=== PATIENT | male | born 1955 | race Caucasian/White ===

== ENCOUNTER 2019-03-30 11:46 | Outpatient (CLI) | payer OTHER, SELFPAY ==
--- NOTE | 2019-03-30 12:36 | ECG_ITS ---
Measurements Intervals [place] Rate: 49 P: 61 WI: 162 QRS: -27 QRSD: 86 T: 20 QT: 427 QTc: 387 Interpretive Statements SINUS BRADYCARDIA VOLTAGE CRITERIA FOR LVH DELAYED PRECORDIAL R/S TRANSITION BASELINE ARTIFACT- I, III, AVL ABNORMAL ECG Electronically Signed On 03-30-2019 14:00:06 SOCIAL SECURITY SPECIALIST by Gilbert Amador D.O.
[2019-03-30 12:55] LABS: Basophils Absolute Auto 0.1 K/mm3 (0.0-0.1); Basophils Percent Auto 0.7 % (0.2-1.2); Eosinophils Absolute Auto 0.2 K/mm3 (0-0.3); Eosinophils Percent Auto 2.1 % (0-4.4); Hematocrit 46.7 % (42.0-52.0); Hemoglobin 15.3 g/dL (14.0-18.0); Immature Granulocyte Absolute 0.02 K/mm3 (0.00-0.031); Immature Granulocyte Percent A 0.2 % (0-0.5); Lymphocytes Absolute Auto 2.59 K/mm3 (0.9-3.2); Lymphocytes Percent Auto 30.4 % (18.3-44.2); Mean Corpuscular HGB Conc 32.8 g/dl (32-36); Mean Corpuscular Hemoglobin 30.1 pg (26-34); Mean Corpuscular Volume 91.9 fl (80-100); Mean Platelet Volume 9.4 fl (7.4-10.4); Monocytes Absolute Auto 0.6 K/mm3 (0.1-0.6); Monocytes Percent Auto 6.4 % (2.6-8.5); Neutrophils Absolute Auto 5.1 K/mm3 (1.3-6.7); Neutrophils Percent Auto 60.2 % (45.5-73.1); Platelet Count Result 202 k/mm3 (150-375); Red Blood Count 5.08 M/mm3 (4.6-6.20); Red Cell Distribution Width 11.9 % (11.5-14.5); White Blood Count 8.5 K/mm3 (4.5-10.0)
[2019-03-30 12:58] LABS: Add Urine Microscopic? YES; Appearance Urine Clear (Clear); Bilirubin Urine Negative (Negative); Blood Urine 1+ (Negative); Color Urine Yellow (Yellow); Glucose Urine UA Negative (Negative); Ketones Urine Negative (Negative); Leukocyte Esterase Ur Negative LEU/UL (Negative); Mucus Urine Rare /lpf; Nitrate Urine Negative (Negative); Protein Urine Negative (Negative); RBC Urine 0-2 /hpf (0-2); Specific Grav Ur 1.013 (1.001-1.035); Urobilinogen Urine Negative mg/dL (<2.0); WBC Urine 0-3 /hpf
[2019-03-30 13:03] LABS: Prothrombin Time 12.6 Seconds (11.1-14.7)
[2019-03-30 13:04] LABS: Partial Thromboplastin Time 26.4 SECONDS (22.3-36.8)
[2019-03-30 13:07] LABS: Alanine Aminotransferase 22 U/L (4-50); Albumin Level 4.3 g/dL (3.5-5.1); Alkaline Phosphatase 61 U/L (38-126); Aspartate Amino Transferase 25 U/L (17-59); Bilirubin,Total 0.7 mg/dL (0.2-1.3); Blood Urea Nitrogen 19 mg/dL (9-20); Calcium 8.8 mg/dL (8.4-10.2); Carbon Dioxide 28 mmol/L (22-30); Chloride 99 mmol/L (98-107); Estimated Glomerular Filt Rate > 60; Glucose 92 mg/dL (75-110); Potassium 4.4 mmol/L (3.4-5.0); Sodium 139 mmol/L (137-145)
== END 2019-03-30 11:47 | disposition home or self-care (01) ==
LOC: ANHSURGERY 11:50
PROVIDERS: Visit Provider Urology
DX: Z01.818 Encounter for other preprocedural examination (principal); C61 Malignant neoplasm of prostate; R94.31 Abnormal electrocardiogram [ECG] [EKG]
CPT/HCPCS: 36415; 80053; 81001; 85025; 85610; 85730; 86850; 86900; 86901; 93005

== ENCOUNTER 2019-04-09 01:30 | Day surgery (SDC) | payer OTHER, SELFPAY ==
[2019-03-30 12:38] VITALS: BP 155/85; PULSE 54; RESP 18; TEMP 36.9; O2SAT 100; BMI 29.3
--- NOTE | 2019-04-06 07:26 | PM.IMHP ---
H&P: HPI History of Present Illness Chief complaint: Prostate CA Narrative: Skyler Ybarra is a 63 year old male recently referred with PSA 9.8. Prostate biopsy showed 10 or 12 cores with Khushi 3+4=7 adenocarcinoma of the prostate with multiple cores showing intraductal ca. Staging CT-abd/pelvis, bone scn and CXR showed no evidence of metastatic disease. His prostate size on ultrasound was 46.0cc. Review of Systems Constitutional: Constitutional: Denies chills, Denies fatigue, Denies fever(s) and Denies headache(s) Eyes: Eyes: Denies blurry vision ENT: Denies vertigo, Denies dizziness, Denies headache(s) and Denies sore throat Cardiovascular: Cardiovascular: Denies chest pain, Denies syncope, Denies lightheadedness, Denies palpitations, Denies dyspnea and Denies dyspnea on exertion Respiratory: Respiratory: Denies hemoptysis, Denies dyspnea and Denies dyspnea on exertion Gastrointestinal: Gastrointestinal: Denies melena, Denies bloating, Denies hematochezia, Denies change in bowel habits, Denies change in stool character, Denies constipation, Denies diarrhea and Denies vomiting Genitourinary: Genitourinary: Denies hematuria, Denies dysuria, Denies testicular pain, Denies urinary frequency, Denies urinary hesitancy and Denies urinary urgency Integumentary/Breasts: Skin/Breast: Denies pruritus, Denies lesions and Denies rash Neurologic: Denies confusion, Denies vertigo, Denies dizziness, Denies syncope and Denies headache(s) Psychiatric: Psychiatric: Denies anxiety, Denies change in appetite and Denies confusion Endocrine: Endocrine: Denies fatigue and Denies palpitations [facility] Social History Social History Alcohol intake: current Meds Home Medications and Allergies Home Medications Medication Instructions Recorded Confirmed Type abatacept [Orencia ClickJect] 125 mg SUBCUT WEEKLY 03/30/19 03/30/19 History ascorbic acid (vitamin C) 500 mg PO DAILY 03/30/19 03/30/19 History calcium carbonate [Tums] 200 mg PO PRN PRN 03/30/19 03/30/19 History folic acid 1 mg PO DAILY 03/30/19 03/30/19 History meloxicam 7.5 mg PO PRN PRN 03/30/19 03/30/19 History methotrexate sodium 7.5 mg PO WEEKLY 03/30/19 03/30/19 History prednisone 5 mg PO PRN PRN 03/30/19 03/30/19 History vitamin B complex [B-Complex] 1 tablet PO DAILY 03/30/19 03/30/19 History Allergies Allergy/AdvReac Type Severity Reaction Status Date / Time No Known Allergies Allergy Unverified 03/30/19 11:58 Exam Const: General: healthy appearing, comfortable, no acute distress and well developed; No confusion Nutritional Appearance: well nourished Orientation/consciousness: patient oriented x3 and No confusion HENMT: Head: normocephalic and atraumatic Ears: external ears normal Face and sinus: normal facial exam Mouth: Yes lip normal Teeth and gingiva: dentition normal Eyes: General: appearance normal, both eyes and all related structures Alignment and Position: alignment normal Eyelids: eyelids normal Cornea: corneas normal Pupils: Equal, round and reactive pupils present EOM: EOMs intact bilaterally Neck: Neck: normal visual inspection, full ROM and no JVD Chest: Chest palpation & inspection: normal inspection of the chest Resp: Effort & Inspection: normal respiratory effort and no use of accessory muscles Auscultation: clear to auscultation bilaterally Cardio: Jugular venous distension: no JVD Rate: regular rate Rhythm: regular rhythm GI: Inspection: normal to inspection GI Palp: No abdominal tenderness, No Guarding due to palpation present (GI) and No Rebound tenderness present Auscultation: normal bowel sounds : General: Yes bladder normal to palpation and No CVA tenderness Back/Spine/Pelvis: Back: No CVA tenderness Skin: General skin exam: normal color and no rashes or lesions noted Neuro: General: patient oriented x3, no focal motor deficits and No confusion Cranial nerv
[2019-04-09] VITALS (10 sets, daily range): BP systolic 109–161; BP diastolic 53–87; PULSE 54–81; RESP 14–20; TEMP 36.1–36.9; O2SAT 95–100
--- NOTE | 2019-04-09 06:49 | WPDHPUPDATE1 ---
History and Physical Update Update Date/Time: 04/09/19 06:49 History and Physical has been reviewed, including an updated exam of the patient. There are NO changes in the patient's condition. Risks, benefits, and alternatives have been discussed and questions answered. Patient agrees to proceed with procedure.
--- NOTE | 2019-04-09 06:53 | WPDANESEPPF ---
Anes - Initial Pre Proc Eval Procedure: Operation Date: 04/09/19 07:30 Proposed Procedures p Robotic Assisted Laparoscopic Prostatectomy, Bilateral Pelvic Lymph Node Dissection - Brian Clark MD Date/Time: 04/09/19 06:53 Surgeon: Brian Clark MD Pre Op Diagnosis: Prostate CA Patient Data Age: 63 Gender: M Height: 5 ft 10 in Weight: 92.7 kg Last Vital Signs Temp 36.9 C 03/30/19 12:38 Pulse 54 L 03/30/19 12:38 Resp 18 03/30/19 12:38 BP 155/85 H 03/30/19 12:38 Pulse Ox 100 03/30/19 12:38 Allergies Allergy/AdvReac Type Severity Reaction Status Date / Time No Known Allergies Allergy Unverified 03/30/19 11:58 Home Medications Medication Instructions Recorded Confirmed Type abatacept [Orencia ClickJect] 125 mg SUBCUT WEEKLY 03/30/19 03/30/19 History ascorbic acid (vitamin C) 500 mg PO DAILY 03/30/19 04/09/19 History calcium carbonate [Tums] 200 mg PO PRN PRN 03/30/19 04/09/19 History folic acid 1 mg PO DAILY 03/30/19 04/09/19 History meloxicam 7.5 mg PO PRN PRN 03/30/19 04/09/19 History methotrexate sodium 7.5 mg PO WEEKLY 03/30/19 04/09/19 History prednisone 5 mg PO PRN PRN 03/30/19 04/09/19 History vitamin B complex [B-Complex] 1 tablet PO DAILY 03/30/19 04/09/19 History Patient hx anesthesia problems: none Family hx anesthesia problems: none [facility] Past Medical History Medical History Rheumatoid arthritis Social History Social History (Updated 04/09/19 @ 06:54 by Vitaliy Gross MD) Smoking status: Current every day smoker Tobacco type: e-cigarettes Alcohol intake: current Anes - Eval Final PreProcedure Day of Procedure 04/09/19 06:53 Patient weight: overweight Heart: regular rate and rhythm Lungs: decreased breath sounds Airway: Mallampati scale class II Neurological: alert and oriented Last oral intake: >/= 8 hours ASA classification: III Emergent: no Anesthetic plan: proceed Anesthesia type and monitoring: general ETT and standard monitoring Informed Consent: The patient's anesthetic plan and its attendant risks and benefits were discussed with the patient/family/POA. Questions were solicited and answers provided to the satisfaction of the patient/family/POA.
[2019-04-09] MEDS: LACTATED RINGERS 1,000 ML 30 ML IV CONT ×2 (06:58→10:57)
[2019-04-09] MEDS: ceFAZolin 2 GM/D5W 50 ML 2 GM/50 ML BAG IVPB (07:30)
--- NOTE | 2019-04-09 11:00 | PM.PROC ---
Procedure Note - Detailed Date of procedure: 04/09/19 Pre-op diagnosis: Prostate CA Post-op diagnosis: same Procedure performed: 1. Bilateral nerve-sparing, robotic-assisted radical prostatectomy. 2. Bilateral pelvic lymphadenectomy Description of procedure: The patient was brought to the operative suite, where he was prepped and draped in routine sterile fashion while in a dorsal lithotomy, deep Trendelenburg position. A supraumbilical 10 mm trocar was placed after insufflation of the abdomen with a Veress needle. Three robotic ports were then placed under direct vision. Two of these were placed in the right lower quadrant - 10 cm and 20 cm lateral to, and in line with, the umbilicus. A third robotic trocar was placed 10 cm to the left of the umbilicus, and 20 cm to the left of the umbilicus, a 12 mm standard laparoscopic trocar was placed to be used as an contact lens assistant port. Lastly, a 5 mm trocar was placed in the left upper quadrant midway between the umbilicus and the left robotic trocar. Attention was then turned to the prostatectomy. I opted for a posterior approach in this patient. An incision was made in the parietal peritoneum along the posterior bladder/posterior prostate about 2 cm above the reflection of the peritoneum over the anterior rectum. The seminal vesicles and vas deferens were immediately identified. Dissection is undertaken in a fashion so as to avoid electrocautery as much as possible, particularly near the tips of the seminal vesicles. Dissection was also carried out in the midline so as to avoid any encounters with the ureters. The vas deferens and the seminal vesicles were dissected in their entirety to the base of the prostate. The plane anterior to Denoviller's fascia, anterior to the rectum and posterior to the prostate was then developed. I then dropped the bladder by incising the anterior parietal peritoneum just lateral to the median umbilical ligaments bilaterally. The bladder was dropped from the anterior abdominal and pelvic wall. The endopelvic fascia was identified and incised bilaterally, allowing for dissection of the posterior-lateral aspect of the prostate. The puboprostatic ligaments were transected near their origin from the posterior pubic ramus. This posterior lateral dissection of the prostate is also undertaken in a fashion so as to avoid electrocautery as much as possible. The dorsal vein of the penis is then secured with an 0 -Vicryl ligature. Attention is then turned to the bladder neck. The anterior bladder neck is incised at the vesico-prostatic junction. The previously placed urethral catheter was drawn through the urethrotomy. A very small bladder neck was maintained throughout the remainder of this dissection. The posterior bladder neck was incised in a fashion so as to avoid any injury to the ureteral orifices. Again, the small aperture of the bladder neck was maintained. The previously dissected vas deferens and the seminal vesicles were brought through the posterior bladder neck incision. The lateral prostatic pedicles were then carefully dissected from the lateral aspect of the prostate bilaterally. The prostatic pedicles were secured with Weck clips and transected. The neurovascular bundles were carefully dissected from the posterior-lateral aspect of the prostate. The dorsal vein of the penis was incised with electrocautery. Using cold scissors, the urethra was incised. After withdrawing the previously placed urethral catheter, the posterior urethra was sharply incised, as was the rectalurethralis muscle. Attention was then turned to a bilateral pelvic lymphadenectomy. The limits of this dissection were similar bilaterally. Specifically, the limits were the bifurcation of the common iliac vein proximally, the inguinal ligament distally, the obturator nerve posteriorly and the anterior aspect to the external iliac vein laterally. This dissection was undertaken with care to avoid any injury to the
--- NOTE | 2019-04-09 11:45 | PC.NURSE ---
This patient, Skyler Ybarra, was admitted to 3 [facility] Surg Room 309-01. Patient/family oriented to hospital policies and general routines including ID bracelet, bed and alarms, visiting hours, pain management, procedures, bathroom and other care routines, personal items, smoking policy, room service/diet, and visiting hours. Valuables list has been completed. Information on how to activate the Rapid Response Team has been discussed. Patient/Family are encouraged to report perceived risks to care and to ask questions if they do not understand what they are told or what they should do.
--- NOTE | 2019-04-09 11:52 | SUR.PHASEI ---
1115 SPOKE WITH FRIEND FRANDY RE: ROOM NUMBER ON FLOOR. 1130 WAITING ROOM CALLED; NO FAMILY PRESENT.
[2019-04-09] MEDS: HYOSCYAMINE SULFATE 0.125 MG TABLET SUBLINGUAL (12:15)
[2019-04-09] MEDS: KETOROLAC 30 MG/ML VIAL (*BKC) IV PUSH (12:15)
[2019-04-09] MEDS: LACTATED RINGERS 1,000 ML 125 ML IV CONT ×2 (12:51→21:59)
[2019-04-09] MEDS: MORPHINE SULFATE 2 MG/ML INJ IV PUSH (17:01)
[2019-04-10 02:00] VITALS: BP 105/46; PULSE 60; RESP 16; TEMP 36.8; O2SAT 94
[2019-04-10 06:00] VITALS: BP 95/55; PULSE 56; RESP 16; TEMP 37; O2SAT 95
[2019-04-10] MEDS: LACTATED RINGERS 1,000 ML 125 ML IV CONT (06:11)
[2019-04-10 06:19] LABS: Hematocrit 38.8 % (42.0-52.0); Hemoglobin 13.2 g/dL (14.0-18.0)
[2019-04-10 06:36] LABS: Blood Urea Nitrogen 15 mg/dL (9-20); Calcium 8.2 mg/dL (8.4-10.2); Carbon Dioxide 29 mmol/L (22-30); Chloride 100 mmol/L (98-107); Estimated CRCL calculation 97 ml/min; Estimated Glomerular Filt Rate > 60; Glucose 114 mg/dL (75-110); Potassium 4.4 mmol/L (3.4-5.0); Sodium 135 mmol/L (137-145)
--- NOTE | 2019-04-10 07:31 | WPDUROPN2 ---
Progress Note: A&P Assessment and Plan (1) Prostate cancer: Code(s): C61 - Malignant neoplasm of prostate Status: Acute Assessment and Plan: Doing well POD #1 RALP. Increase diet/activity this morning. Posssibly home this afternoon. Subjective Subjective Date/Time Seen: 04/10/19 07:31 POD #1 RALP - comfortable, tolerating diet. Review of Systems Cardiovascular: Cardiovascular: Denies chest pain, Denies lightheadedness, Denies palpitations and Denies dyspnea Respiratory: Respiratory: Denies dyspnea Gastrointestinal: Gastrointestinal: Denies diarrhea, Denies nausea and Denies vomiting Genitourinary: Genitourinary: Denies hematuria and Denies dysuria Endocrine: Endocrine: Denies palpitations Exam Const: General: no acute distress Resp: Effort & Inspection: normal respiratory effort GI: Inspection: non-distended GI Palp: No abdominal tenderness and No Guarding due to palpation present (GI) Auscultation: normal bowel sounds Objective Data Vital Signs Vital Signs: Vital Signs - 24 hr 04/09/19 10:47 04/09/19 11:01 04/09/19 11:10 Temperature 97.1 F L Pulse Rate 78 77 67 Respiratory Rate 14 16 15 Blood Pressure 124/74 161/67 H 140/76 Pulse Oximetry 100 97 98 04/09/19 11:25 04/09/19 11:39 04/09/19 11:54 Temperature 97.4 F L 97 F L Pulse Rate 76 70 73 Respiratory Rate 15 16 16 Blood Pressure 144/69 H 151/71 H 161/87 H Pulse Oximetry 98 97 95 04/09/19 12:24 04/09/19 14:00 04/09/19 22:00 Temperature 97.2 F L 97.6 F 98.4 F Pulse Rate 81 78 71 Respiratory Rate 16 18 16 Blood Pressure 142/58 H 109/53 L Pulse Oximetry 99 96 95 04/10/19 02:00 Temperature 98.2 F Pulse Rate 60 Respiratory Rate 16 Blood Pressure 105/46 L Pulse Oximetry 94 Intake/Output Intake/Output: Intake & Output 04/07/19 04/08/19 04/09/19 04/10/19 23:59 23:59 23:59 23:59 Intake Total 3495 1100 Output Total 280 Balance 3215 1100 Meds/Results Medications: Active Medications Generic Name Dose Route Start Last Admin Trade Name Freq PRN Reason Stop Dose Admin Calcium Carbonate 200 mg 04/09/19 11:00 Tums PO PRN PRN Indigestion Hyoscyamine 0.125 mg 04/09/19 11:39 04/09/19 12:15 Levsin Tablet SUBLINGUAL 0.125 mg Q4H PRN Administration Bladder Spasm Lactated Ringer's 1,000 mls @ 125 mls/hr 04/09/19 11:39 04/10/19 06:11 Lr - Lactated Ringers Iv IV CONT 125 mls/hr .Q8H TEOFILO Administration Acetaminophen 1,000 mg in 100 mls @ 400 mls/hr 04/09/19 15:00 04/10/19 04:03 Ofirmev 1,000 Mg Ivpb IVPB 04/10/19 15:01 Infused Q6H TEOFILO Infusion Ketorolac Tromethamine 30 mg 04/09/19 11:39 04/09/19 12:15 Toradol Inj IV PUSH 04/10/19 11:40 30 mg Q6H PRN Administration Pain Rated 4-6 Levofloxacin 500 mg 04/10/19 09:00 Levaquin Tab PO DAILY TEOFILO Morphine Sulfate 2 mg 04/09/19 16:56 04/09/19 17:01 Morphine Sulfate Inj IV PUSH 2 mg Q4H PRN Administration Pain Rated 7-10 Naloxone HCl 0.1 mg 04/09/19 11:39 Narcan IV PUSH Q2M PRN Opiate Reversal Ondansetron HCl 4 mg 04/09/19 11:39 Zofran Inj IV PUSH Q6H PRN Nausea And Vomiting Labs Labs: Laboratory Results - last 24 hr 04/10/19 04/10/19 06:00 06:00 Hgb 13.2 L Hct 38.8 L Sodium 135 L Potassium 4.4 Chloride 100 Carbon Dioxide 29 BUN 15 Creatinine 0.70 Estim Creat Clear Calc 97 Estimated GFR > 60 Glucose 114 H Calcium 8.2 L
[2019-04-10 09:30] VITALS: BP 101/54; PULSE 58; RESP 16; TEMP 36.6; O2SAT 97
[2019-04-10] MEDS: HYOSCYAMINE SULFATE 0.125 MG TABLET SUBLINGUAL (09:49)
[2019-04-10] MEDS: KETOROLAC 30 MG/ML VIAL (*BKC) IV PUSH (11:38)
--- NOTE | 2019-04-10 12:21 | PM.DS ---
DS: Diagnosis Admitting Diagnosis Admitting Diagnosis: Malignant neoplasm of prostate. Hospital Course This patient was admitted on the morning of his planned robotic prostatectomy. This procedure was uneventful, as was his postoperative course. By the evening of the procedure he was sitting at the bedside in tolerating a liquid diet. The following morning he was ambulating freely and tolerating regular food. His catheter drainage remained essentially clear throughout. His postoperative hemoglobin and serum creatinine were unremarkable. At the time of discharge he has been instructed in appropriate care for his Conti catheter with both a leg bag and bedside bag. He will be discharged with plans to follow-up in 1 week with a cystogram. DS: Summary Time Spent with Patient Time attestation: Total time spent providing and/or coordinating discharge services: 15min Exam Const: General: no acute distress Resp: Effort & Inspection: normal respiratory effort GI: Inspection: non-distended and other (incisions clean and dry) GI Palp: No abdominal tenderness and No Guarding due to palpation present (GI) Auscultation: normal bowel sounds DS: Data Data Completed and Pending Completed studies during hospitalization: Pending at discharge 04/09/19 09:44 Surgical [PTH] Routine Labs on day of discharge: Labs from last 24 hours 04/10/19 04/10/19 06:00 06:00 Hgb 13.2 L Hct 38.8 L Sodium 135 L Potassium 4.4 Chloride 100 Carbon Dioxide 29 BUN 15 Creatinine 0.70 Estim Creat Clear Calc 97 Estimated GFR > 60 Glucose 114 H Calcium 8.2 L Discharge Plan Discharge Patient Disposition: Home, Self-Care Discharge Instructions: 1) Conti catheter -> leg bag / bedside bag at night. 2) No lifting/straining >15lbs. x3 weeks. 3) No driving x1-week. 4) Resume normal, pre-operative diet. 5) My office will contact regarding follow-up in 1-week with cystogram. Patient Instructions: Pain Management (DC), Conti Catheter Placement and Care (DC) Discharge Medications: New hydrocodone-acetaminophen 5-325 mg tablet 1 - 2 tablet PO Q6H PRN (Reason: pain) Qty: 20 RF: 0 hyoscyamine sulfate 0.125 mg tablet 0.125 mg PO Q6H PRN (Reason: bladder spasms) Qty: 20 RF: 2 docusate sodium [Colace] 100 mg capsule 100 mg PO DAILY Qty: 30 RF: 0 levofloxacin [Levaquin] 500 mg tablet 500 mg PO DAILY Qty: 7 RF: 5 Continued prednisone 5 mg Tablet 5 mg PO PRN PRN (Reason: Pain) RF: 0 meloxicam 7.5 mg Tablet 7.5 mg PO PRN PRN (Reason: Pain) RF: 0 methotrexate sodium 2.5 mg Tablet 7.5 mg PO WEEKLY RF: 0 calcium carbonate [Tums] 200 mg calcium (500 mg) Tablet,Chewable 200 mg PO PRN PRN (Reason: Indigestion) RF: 0 folic acid 1 mg Tablet 1 mg PO DAILY RF: 0 Orencia ClickJect 125 mg/mL Auto-Injector 125 mg SUBCUT WEEKLY RF: 0 Held ascorbic acid (vitamin C) 500 mg Tablet 500 mg PO DAILY RF: 0 Hold Instructions: Resume on 04/15/19. vitamin B complex [B-Complex] Tablet 1 tablet PO DAILY RF: 0 Hold Instructions: Resume on 04/15/19.
--- NOTE | 2019-04-10 14:53 | PC.NURSE ---
1430 Discharged home with family, awake, alert, and oriented times four, no complaints. Took personal affects and discharge paperwork. Tech. escorted out to [facility] in wheelchair.
== END 2019-04-10 14:30 | disposition home or self-care (01) ==
LOC: ANHSURGERY 11:39 → ANH3MEDSUR 11:53
PROVIDERS: Visit Provider Urology
PROC: 0VT04ZZ Resection of Prostate, Percutaneous Endoscopic Approach (ICD-10-PCS; CPT 55867; principal; 2019-04-09 07:30)
DX: C61 Malignant neoplasm of prostate (principal); M06.9 Rheumatoid arthritis, unspecified; F17.290 Nicotine dependence, other tobacco product, uncomplicated
CPT/HCPCS: 55866; 38571; S2900; 36415; 80048; 85014; 85018; 88305; 88307; A9270; J0131; J0330; J0690; J1100; J1885; J2250; J2270; J2370; J2405; J2704; J2710; J3010; J7030; J7120; Q9968

== ENCOUNTER 2019-04-17 10:02 | Outpatient (CLI) | payer OTHER, SELFPAY ==
--- NOTE | ~2019-04-17 | XR_ITS ---
EXAMINATION: XR cystogram DATE: 04/17/2019 10:48 INDICATION: Prostate cancer status post prostatectomy TECHNIQUE: Water-soluble contrast was gravity-infused through the patient's Conti catheter. Multiple fluoroscopic images were obtained. Fluoroscopy exposure time was 0.9 minutes. The DAP for this proced ure was 16.908 Gycm2. COMPARISON: None. FINDINGS: Surgical Instrument Mechanic image is unremarkable. The bowel gas pattern is normal. Mild lumbar spondylosis is no cecilia. As contrast volume within the bladder increased, a small amount of extravasated contrast is seen near the right bladder base. IMPRESSION: 1. Small amount of extravasated contrast near the right bladder base. Reviewed, dictated and finalized at location A. COUNSELOR
== END 2019-04-17 10:05 | disposition home or self-care (01) ==
PROVIDERS: Visit Provider Urology
DX: C61 Malignant neoplasm of prostate (principal)
CPT/HCPCS: 51600; 74430; Q9967

== ENCOUNTER 2019-04-24 14:41 | Outpatient (CLI) | payer OTHER, SELFPAY ==
--- NOTE | ~2019-04-24 | XR_ITS ---
EXAMINATION: CYSTOGRAM DATE: 04/24/2019 15:25 INDICATION: Prostate cancer with bladder leak post prostatectomy TECHNIQUE: Initial program director scouting radiograph of the pelvis was performed. There was retrograde administration of Omnipaque 350 mixed with saline contrast into patient's existing vines catheter. Fluoroscopic mami ges of the pelvis were obtained. A post-void image was also performed. Fluoroscopy exposure time was minutes. COMPARISON: 04/17/2019 FINDINGS: Vines catheter in the bladder. Persistent bladder leak at the right posterior base of the bladder wit h significant decrease in a now minimal amount of extravasated contrast. Remainder of the bladder debby ears normal. IMPRESSION: 1. Significant decrease in now minimal amount of extravasated contrast arising from a persistent mariaelena dder leak at the right posterior base of the bladder. Reviewed, dictated and finalized at location A. MIXER REPAIRER IMPRESSION: 1. Significant decrease in now minimal amount of extravasated contrast arising from a persistent bladder leak at the right posterior base of the bladder.
== END 2019-04-24 14:42 | disposition home or self-care (01) ==
PROVIDERS: PCP Family Medicine Sports Medicine; Visit Provider Urology
DX: C61 Malignant neoplasm of prostate (principal)
CPT/HCPCS: 51600; 74430; Q9967

== ENCOUNTER 2019-09-23 08:49 | Outpatient (CLI) | payer OTHER, SELFPAY ==
--- NOTE | ~2019-09-23 | MR_ITS ---
EXAMINATION: MR pelvis wo/w con INDICATION: Prostate cancer TECHNIQUE: Coronal SSFSE ARC, Axial and Coronal 2D FIESTA FatSat, Axial T2 FS, Axial SSFSE BH ARC, Ax ial 3D DualEcho BH, Axial SSFSE-IR Dima, Axial DWI b=600, pre and dynamic postcontrast Axial LAVA ARC, WATER:POST Cor LAVA-FLEX COMPARISON: CT, 02/05/2019 CONTRAST: Multihance, 17 cc FINDINGS: There are changes of interval prostatectomy. There is a new 4.2 x 2.8 cm nonenhancing cysti c lesion of the right pelvis just above the level of the acetabulum which exerts mass effect on the b ladder. No pathologically enlarged lymph nodes are identified. There are no dilated loops of bowel. T here is no abnormal enhancement after contrast administration. IMPRESSION: 1. No evidence of metastatic disease. 2. New nonenhancing cystic lesion of the right pelvis, likely peritoneal inclusion cyst. Reviewed, dictated and finalized at location A. IMPRESSION: 1. No evidence of metastatic disease. 2. New nonenhancing cystic lesion of the right pelvis, likely peritoneal inclus ion cyst.
[2019-09-23 09:34] LABS: Estimated Glomerular Filt Rate > 60
== END 2019-09-23 08:50 | disposition home or self-care (01) ==
PROVIDERS: PCP Family Medicine Sports Medicine; Visit Provider Radiology Radiation Oncology
DX: C61 Malignant neoplasm of prostate (principal)
CPT/HCPCS: 36415; 72197; A9577

== ENCOUNTER 2020-01-29 11:46 | Outpatient (CLI) | payer OTHER, SELFPAY ==
--- NOTE | ~2020-01-29 | XR_ITS ---
EXAMINATION: XR hand BI arthritis min 3V DATE: 01/29/2020 12:13 INDICATION: History of rheumatoid arthritis, malignant neoplasm of the prostate TECHNIQUE: Posteroanterior, lateral, and oblique views of the left and of the right hands as well as a ballcatchers view of both hands were obtained. COMPARISON: None. FINDINGS: Bone alignment is normal. There is no acute fracture. There appears to be a healed fracture of the le ft fifth metacarpal. Mild osteoarthritis is again noted in multiple bilateral interphalangeal joints. No abnormal erosions or subluxations are identified. IMPRESSION: 1. Mild osteoarthritis. Reviewed, dictated and finalized at location A. E PLANNER IMPRESSION: 1. Mild osteoarthritis.
--- NOTE | ~2020-01-29 | XR_ITS ---
XR foot LT standing 2V DATE: 01/29/2020 12:13 INDICATION: Malignant neoplasm of prostate TECHNIQUE: Standing AP and lateral views COMPARISON: None FINDINGS: No fracture or dislocation, periosteal reaction or bone destruction. No erosive change. IMPRESSION: No significant abnormality Reviewed, dictated and finalized at location A. CELL BATTERY TECHNICIAN IMPRESSION: No significant abnormality
--- NOTE | ~2020-01-29 | XR_ITS ---
XR foot RT standing 2V DATE: 01/29/2020 12:13 INDICATION: Malignant neoplasm of prostate TECHNIQUE: Standing AP and lateral views COMPARISON: None FINDINGS: There is moderate osteoarthritic change at the first metatarsophalangeal joint. No fracture, dislocation, periosteal reaction or bone destruction. IMPRESSION: First metatarsophalangeal joint osteoarthritis Reviewed, dictated and finalized at location A. SIONS INSPECTOR
== END 2020-01-29 11:47 | disposition home or self-care (01) ==
PROVIDERS: PCP Family Medicine Sports Medicine; Visit Provider Internal Medicine
DX: C61 Malignant neoplasm of prostate (principal); M05.79 Rheumatoid arthritis with rheumatoid factor of multiple sites without organ or systems involvement; M19.041 Primary osteoarthritis, right hand; M19.042 Primary osteoarthritis, left hand; M19.071 Primary osteoarthritis, right ankle and foot
CPT/HCPCS: 73130; 73620

== ENCOUNTER 2022-12-07 14:34 | Outpatient (CLI) | payer MEDICARE, SELFPAY ==
--- NOTE | ~2022-12-07 | MR_ITS ---
EXAMINATION: MR hand LT wo/w con, MR hand RT wo/w con DATE: 12/07/2022 16:51 INDICATION: Rheumatoid arthritis with rheumatoid factor TECHNIQUE: 1. Magnetic resonance imaging (MRI) of the left hand was performed without and with 17 mL Multihance intravenous contrast. Sequences included axial, sagittal and coronal T1-weighted FSE and T2-weighted FS FSE, axial T1-weighted FS FSE and postcontrast axial, sagittal and coronal T1-weighted FS FSE. 2. MRI of the right hand was performed without and with the same 17 mL MultiHance intravenous contras t bolus. Sequences included axial, sagittal and coronal T1-weighted FSE and T2-weighted FS FSE, axial T1-weighted FS FSE and postcontrast axial, sagittal and coronal T1-weighted FS FSE. COMPARISON: None FINDINGS: Left hand: Bone alignment is normal. No fracture or pathologic marrow replacing process. There is enhancing syno vitis at the second metacarpophalangeal joint with small enhancing periarticular erosion at the dorsa l aspect of the head of the second metacarpal. Couple additional juxtaposed small enhancing erosions at both sides of the dorsal margin of the articular relation between the trapezoid and the capitate. There is mild subarticular marrow edema and enhancement at both sides of the articulation between the hamate and the triquetrum. Additional mild marrow edema and enhancement without definitive erosion a t the ulnar side of the proximal articular surface of the lunate. Mild enhancing synovitis at the wri st and metacarpal joints. There is mild enhancing tenosynovitis extending along the flexor tendons of the fourth digit. Remainder of the flexor and extensor tendons are normal. Intrinsic musculature of the hand is unremarkable. Right hand: Bone alignment is normal. No fracture or pathologic marrow replacing process. Small enhancing erosion s at the ulnar side of the triquetrum, at the proximal pole of the hamate and ulnar side of the capit ate and at the trapezium along its articulation with the trapezoid. There is associated enhancing syn ovitis at the wrist and metacarpal joints. There is enhancing synovitis at the second and fifth metac arpophalangeal joints with small enhancing or periarticular erosion at the dorsal head of the second metacarpal. There is fluid in the tendon sheath surrounding the flexor tendons at the palmar aspect o f the hand. There is more extensive tenosynovitis surrounding the flexor tendons beginning proximal t o the carpal tunnel with the distalmost forearm and extending to the palmar aspect of the hand at the level of the mid metacarpals more distally into the phalanges at the first and fourth digits. Intrin sic musculature of the hand is unremarkable. IMPRESSION: 1. Scattered enhancing synovitis and a few enhancing erosions at the bilateral carpi, left second met acarpophalangeal and right second and fifth metacarpophalangeal joints consistent with provided histo ry of rheumatoid arthritis. 2. Extensive enhancing tenosynovitis involving the flexor tendons of the right hand and minimally at the flexor tendons to the left fourth digit which could also be secondary to rheumatoid arthritis. Reviewed, dictated and finalized at location A. IMPRESSION: 1. Scattered enhancing synovitis and a few enhancing erosions at the bilateral carpi, left second metacarpophalangeal and right second and fifth metacarpophal angeal joints consistent with provided history of rheumatoid arthritis. 2. Extensive enhancing tenosynovitis involving the flexor tendons of the right hand and minimally at the flexor tendons to the left fourth digit which could a lso be secondary to rheumatoid arthritis.
== END 2022-12-07 14:35 | disposition home or self-care (01) ==
PROVIDERS: PCP Family Medicine Sports Medicine; Visit Provider Internal Medicine
DX: M05.79 Rheumatoid arthritis with rheumatoid factor of multiple sites without organ or systems involvement (principal)
CPT/HCPCS: 73220; A9577

== ENCOUNTER 2025-01-25 14:53 | Outpatient (CLI) | payer MEDICARE, SELFPAY ==
--- NOTE | ~2025-01-25 | CT_ITS ---
EXAMINATION:CT lung screening DATE: 01/25/2025 15:21 INDICATION: Screening TECHNIQUE: Computed tomography (CT) of the chest was performed without intravenous contrast. The dose-length product (DLP) was 129.08 mGy-cm. COMPARISON: None. FINDINGS: No suspicious lung nodules or masses. No consolidation effusion or pneumothorax. Heart size normal. 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 The bones appear intact with moderately severe degenerative and kyphotic changes of the thoracic spine. No acute process seen in the visualized portions of the upper abdomen. IMPRESSION: 1. No suspicious lung nodules or masses. 2. Borderline aneurysmal dilatation of the ascending thoracic aorta. 3. Recommend correlation with follow-up low-dose lung cancer screening chest CT in 12 months. Reviewed, dictated and finalized at location A. ORDER PERSON
== END 2025-01-25 14:54 | disposition home or self-care (01) ==
PROVIDERS: PCP Physician Assistant Medical; Visit Provider Physician Assistant Medical
DX: Z12.2 Encounter for screening for malignant neoplasm of respiratory organs (principal); F17.211 Nicotine dependence, cigarettes, in remission
CPT/HCPCS: 71271